=== PATIENT | male | born 1940 | race Caucasian/White ===

== ENCOUNTER → 2016-07-08 | Outpatient (CLI) | payer OTHER, BC ==
[~2016-07-08] VITALS: Ht 185.4 cm; Wt 108.6 kg
[~2016-07-08] MED LIST: ADIPEX-P37.5 MG PO; ADVAIR 500-501 EACH INH; CARBIDOPA-LEVO1 EAC9 PO; CIALIS5 MG PO; DIFLUCAN200 MG PO; FLOMAX0.4 MG PO; FLONASE 0.05%50 MCG NASAL; KLOR-CON 1010 MEQ PO; LASIX 40 MG TAB40 M2 PO; LIDODERM 5%1 PATC1 TRANSDERM; LUNESTA3 MG; MOVANTIK25 MG PO; NAPROSYN500 MG PO; OMEPRAZOLE 20 M20 M1 PO; OXYCODONE HCL 55 MG; OXYCODONE HCL5 M1 PO; OXYCODONE-ACET1 EACH PO; PHENTERMINE H37.5 M1 PO; PROAIR HFA8.5 GM; PROSCAR 5MG TABL5 MG PO; ROXICODONE5 M2 PO; SIMVASTATIN40 MG PO; SINGULAIR 10 MG10 M1 PO; TIZANIDINE HCL 22 M1 PO; VOLTAREN GEL 1100 G2 TOP; XANAX1 MG PO; ZYRTEC10 M4 PO; [UNRECOGNIZED DRUG - OTHER]; [UNRECOGNIZED DRUG - REMARK]
--- NOTE | ~2016-07-08 | HPC ---
[facility] [place] [address] PAIN MANAGEMENT CONSULTATION Name: ELADIAAAMIR CUMMINGS [facility] [id number] Admission: 07/08/16 Attend Phys: Bruce Khan DO Discharge: Date of : 42 Report #: [id number] THIS REPORT FOR: //name// CC: Robert Khan The patient is a 76-year-old gentleman initially treated for greater occipital neuralgia, myofascial pain, most recently treated for lumbar radiculopathy and SI joint dysfunction requiring complex medication management. Last seen in the pain clinic on 05/22/2016. Continued on oxycodone 5 mg t.i.d. We did a right SI joint injection and referred to physical therapy. He returns to pain clinic today noting that the injection afforded only 30% relief. He is yet to start doing physical therapy. He notes pain is primarily low back, right buttock and leg. Physical exam notes 76-year-old gentleman, BMI is 31.6 kilograms per meter squared. Rises from chair using armrest, acutely tender over the right SI. Lower extremity strength is symmetric. Straight leg raise is negative. Positive Flavia test on the right. ASSESSMENT: Ongoing right sacroiliac joint dysfunction, lumbar radiculopathy, greater occipital neuralgia, chronic pain syndrome requiring complex medication management. RECOMMENDATION: We will renew oxycodone 5 mg 1/2 to 1 b.i.d., 75 tablets for 30 days, naproxen sodium 500 mg b.i.d., 60 tablets with 1 refill. We will trial tizanidine for spasm 2 mg 1-2 tablets 3 times a day, 150 tablets with 2 refills. Amitiza 24 mcg b.i.d., 60 tablets with 2 refills had been faxed earlier in the week. This seems to be helpful for constipation. RECOMMENDATION: 1. Medication management as noted above. 2. Strongly encourage physical therapy. I wrote a new prescription for water aerobics. We will consider right SI joint injection at next visit. By: [id number] Bruce Khan DO /nt
[2016-07-08 14:04] VITALS: BP 124/70
== END ==
LOC: PAIN 06:54
DX: M54.81 Occipital neuralgia (principal); M54.16 Radiculopathy, lumbar region; M53.3 Sacrococcygeal disorders, not elsewhere classified; Z87.891 Personal history of nicotine dependence

== ENCOUNTER → 2016-07-19 | Outpatient (CLI) | payer OTHER, BC ==
[~2016-07-19] VITALS: Ht 185.4 cm; Wt 108.0 kg
--- NOTE | ~2016-07-19 | HPC ---
[facility] [place] [address] PAIN MANAGEMENT CONSULTATION Name: ELADIAEMILIANOAAMIR S Room #: [facility] [id number] Admission: 07/19/16 Attend Phys: Bruce Khan DO Discharge: Date of : 42 Report #: [id number] THIS REPORT FOR: //name// CC: Robert Khan The patient is a 76-year-old gentleman, prior seen in the pain clinic on 07/08/2016. We had elected to proceed with a right SI joint injection at this visit. I renewed prescription for water aerobics. He did see the physical therapist. He has had 1 visit, that they did get him exercises to do at home, for core strengthening. Presents to pain clinic today noting that right SI pain is 5/10. PROCEDURE NOTE: Right SI joint injection under fluoroscopy. DESCRIPTION OF PROCEDURE: After written informed consent was obtained, the patient was taken to fluoroscopy suite, placed in prone position. After sterile prep and drape, skin wheal was raised. A 22-gauge stylet needle was placed to contact the inferior aspect of the right SI joint. Negative aspiration was accomplished, 40 mg triamcinolone plus 2 mL of 0.5% preservative-free bupivacaine was injected into and around the joint. Needle was removed. The area was cleansed. Band-Aids applied. The patient monitored for an appropriate period of time, discharged in good and stable condition. <ELECTRONICALLY SIGNED> By: Bruce Khan DO 07/22/16 1538 [id number] Bruce Khan DO /nt
[2016-07-19 14:38] VITALS: BP 127/77
== END ==
LOC: PAIN 06:54
DX: M53.3 Sacrococcygeal disorders, not elsewhere classified (principal)

== ENCOUNTER → 2016-09-02 | Outpatient (CLI) | payer OTHER, BC ==
[~2016-09-02] VITALS: Ht 185.4 cm; Wt 111.6 kg
--- NOTE | ~2016-09-02 | HPC ---
[facility] [place] [address] PAIN MANAGEMENT CONSULTATION Name: AAMIR SHAW Room #: REG [facility].#: [id number] Admission: 09/02/16 Attend Phys: Bruce Khan DO Discharge: Date of : 42 Report #: [id number] THIS REPORT FOR: //name// CC: Robert Khan HISTORY OF PRESENT ILLNESS: The patient is a 76-year-old gentleman being treated for SI joint pain, greater occipital neuralgia, myofascial pain requiring complex medication management. Last seen in the pain clinic 07/19/2016, I did a right SI joint injection under fluoroscopy at that time with significant improvement of right SI pain. The patient returns to the pain clinic today for medication management. He has ongoing neck, posterior occiput and low back pain, remains about 5/10. Notes medications are helpful. He had a hiatus of about 30 days when he was out of town. He did not participate in his physical therapy. He would like to resume physical therapy. He has been taking oxycodone 5 mg 2 or 3 a day, limits 75 tablets for 30 days, Naprosyn 500 mg b.i.d., tizanidine 2 mg 1-2 tablets limit 150 tablets for 30 days on a more p.r.n. basis. PHYSICAL EXAMINATION: Shows a 76-year-old gentleman, BMI is 32.5 kilograms per meter squared. Subjective pain score is 5/10. Vital signs are stable as noted in the EMR with modest hypertension of 161/78, pulse 68, respirations of 14. Cervical range of motion is adequate. Tender in the right posterior occipital area, low back pain remains modestly problematic, again the right SI mediated pain is significantly improved at this time. Gait is tandem. We reviewed the fact that opiate medications are being used to provide analgesia adequate to support activities of daily living, not attempting to achieve a specific pain score on the 0-10 Visual Analog Scale. The current opiate medications are providing sufficient analgesia to allow the patient to participate in activities of daily living. The patient is not exhibiting any aberrant behavior suggestive of drug diversion. The patient is not having any adverse reactions to medications. The patient is not suffering from daytime somnolence or mental acuity changes. The patient is managing opiate-induced constipation with appropriate rexb-xzu-klvjtap agents and dietary considerations. The patient was counseled on concern for caution with operating a motor vehicle while using opiate medications. A physical exam was performed and the patient's functional status was evaluated. All patients with back pain were advised against the bed rest greater than 4 days and were advised to return to normal activities. Pain score assessment was noted and the treatment plan was reviewed with the patient. All current medications, both prescribed and OTC were reviewed and reconciled on the electronic medical record. Tobacco screening was accomplished and smoking cessation was advised when indicated. BMI was noted and diet/exercise modification was recommended for all patients following outside normal parameters. [address] [address] PAIN MANAGEMENT CONSULTATION Name: AAMIR SHAW Room #: REG [facility] Debra#: [id number] Admission: 09/02/16 Attend Phys: Bruce Khan DO Discharge: Date of : 42 Report #: [id number] I reviewed with the patient today their responsibilities to safeguard prescription medications, reviewed their responsibility to utilize medications only as prescribed by the physician. They are to seek and receive pain medications only from 1 physician group ( [facility]). They are to use 1 pharmacy and keep the clinic informed if they change pharmacies. Their responsibilities include making followup visits in a timely fashion and to avoid abrupt discontinuation of medication usage. Their responsibilities further include bringing their medications (bottles from the pharmacy with residual pills) to the visit for possible confirmation of pill counts and the patient understands it is their responsibility to submit to random drug screens to ensure both that the medications prescribed are present, and that no other controlled substances are present. All prescriptions provided today were generated electronically. ASSESSMENT: Sacroiliac mediated pain, greater occipital neuralgia, myofascial pain requiring complex medication management, stable on baseline medications. RECOMMENDATION: Renew oxycodone 5 mg, limit 75 tablets for 30 days. I have taken the liberty of writing for 2 months of current medication, Naprosyn 500 mg b.i.d., tizanidine 2 mg t.i.d., 150 tablets for 30 days. Follow up in 2 months for reevaluation, earlier if needed. <ELECTRONICALLY SIGNED> By: Bruce Khan DO 09/04/16 [id number] Bruce Khan DO /nt
[2016-09-02 14:32] VITALS: BP 161/78
== END ==
LOC: PAIN 06:15
DX: M54.81 Occipital neuralgia (principal)

== ENCOUNTER → 2016-10-10 | Outpatient (CLI) | payer OTHER, BC ==
[~2016-10-10] VITALS: Ht 185.4 cm; Wt 114.8 kg
[2016-10-10 11:15] VITALS: BP 105/76
== END | disposition home or self-care (01) ==
LOC: PAIN 06:48
DX: M53.3 Sacrococcygeal disorders, not elsewhere classified (principal); M47.897 Other spondylosis, lumbosacral region; M47.892 Other spondylosis, cervical region; M54.81 Occipital neuralgia; F11.20 Opioid dependence, uncomplicated; Z88.0 Allergy status to penicillin

== ENCOUNTER → 2016-11-11 | Outpatient (CLI) | payer OTHER, BC ==
[~2016-11-11] VITALS: Ht 185.4 cm; Wt 114.5 kg
--- NOTE | ~2016-11-11 | HPC ---
[facility] [place] [address] PAIN MANAGEMENT CONSULTATION Name: AAMIR SHAW [facility] [id number] Admission: 11/11/16 Attend Phys: Bruce Khan DO Discharge: Date of : 42 Report #: [id number] THIS REPORT FOR: //name// CC: Robert Khan The patient is a 76-year-old gentleman typically treated for greater occipital neuralgia, neuropathic pain, cervical spondylosis, ongoing SI mediated pain, lumbar spondylosis, requiring complex medication management. Last seen in pain clinic on 10/10/2016, continued on a low dose oxycodone 5 mg 1 tablet 2-3 times a day. K-TRACS was reviewed today. There are no aberrant findings, the patient fills his prescriptions in [place]. Presents to pain clinic today, pain seems to be getting worse in the mid low back area. We did a right SI joint injection at last visit with overall improvement of baseline pain. Notes his pain now; however, is somewhat higher. He specifically notes that after the SI joint injection, there were several days before pain relief occurred, but when it did, it was quite efficacious, notes 80% relief. His pain now is a little bit higher, in fact he had a friend circled the epicenter of his pain, which is around the L4-L5 area, much higher than the prior SI mediated pain. He notes this pain is a 7 on a VAS, exacerbated with sitting, standing. States the last few nights he has been unable to lie on his side due to this ongoing back pain. States he has a throbbing in his second toe on the left foot, this etiology is somewhat obscure. He states he saw a back surgeon at [facility]. Unfortunately, he does not have the consult results from this. They had suggested some surgical intervention (fusion?). We reviewed the fact that opiate medications are being used to provide analgesia adequate to support activities of daily living, not attempting to achieve a specific pain score on the 0-10 Visual Analog Scale. The current opiate medications are providing sufficient analgesia to allow the patient to participate in activities of daily living. The patient is not exhibiting any aberrant behavior suggestive of drug diversion. The patient is not having any adverse reactions to medications. The patient is not suffering from daytime somnolence or mental acuity changes. The patient is managing opiate-induced constipation with appropriate pjww-lxc-wiwkadz agents and dietary considerations. The patient was counseled on concern for caution with operating a motor vehicle while using opiate medications. A physical exam was performed and the patient's functional status was evaluated. All patients with back pain were advised against the bed rest greater than 4 days and were advised to return to normal activities. Pain score assessment was [address] [address] PAIN MANAGEMENT CONSULTATION Name: AAMIR SHAW Room #: REG [facility] Debra#: [id number] Admission: 11/11/16 Attend Phys: Bruce Khan DO Discharge: Date of : 42 Report #: [id number] noted and the treatment plan was reviewed with the patient. All current medications, both prescribed and OTC were reviewed and reconciled on the electronic medical record. Tobacco screening was accomplished and smoking cessation was advised when indicated. BMI was noted and diet/exercise modification was recommended for all patients following outside normal parameters. I reviewed with the patient today their responsibilities to safeguard prescription medications, reviewed their responsibility to utilize medications only as prescribed by the physician. They are to seek and receive pain medications only from 1 physician group ( [facility]). They are to use 1 pharmacy and keep the clinic informed if they change pharmacies. Their responsibilities include making followup visits in a timely fashion and to avoid abrupt discontinuation of medication usage. Their responsibilities further include bringing their medications (bottles from the pharmacy with residual pills) to the visit for possible confirmation of pill counts and the patient understands it is their responsibility to submit to random drug screens to ensure both that the medications prescribed are present, and that no other controlled substances are present. All prescriptions provided today were generated electronically. PHYSICAL EXAMINATION: Shows a 76-year-old gentleman, BMI is 33.3 kilograms per meter squared. Vital signs stable as noted in the EMR. Alert and oriented to person, place and time, judged to be a reasonable historian. Rises from chair using armrests. Again tender over the lower lumbar facets. SI joints really pretty unremarkable. Flexion and rotation do exacerbate low back pain. Lower extremity strength is symmetric. Straight leg raising negative. I reviewed diagnostic findings including MRI of the lumbar spine from earlier this year, 05/20/2016. L3-L4 notes mild facet hypertrophy; however, L4-L5 and L5-S1 have marked facet hypertrophy and I think that this is the etiology of his primary pain. Pain is little worse on the right than the left side. I suggest he move forward with right L4-L5 and L5-S1 facet joint injections under fluoroscopy. The patient would like to defer. We talked about opiate analgesics for pain, he is taking Naprosyn 500 mg p.r.n. I suggested for a short course to take it b.i.d. I will renew his oxycodone 5 mg, increasing from 75 to 90 tablets for 30 days. The patient was discharged in good and stable condition with 2 months of current medication. We will plan on moving forward with fluoroscopic-guided right L4-L5 and L5-S1 facet joint injections at the patient's discretion. Strongly encouraged core stabilization and weight loss. [facility] [address] [place] [address] PAIN MANAGEMENT CONSULTATION Name: AAMIR SHAW Room #: [facility]#: [id number] Admission: 11/11/16 Attend Phys: Bruce Khan DO Discharge: Date of : 42 Report #: [id number] Discharged in good and stable condition after a prolonged visit. The patient was seen for approximately 25 minutes from 9:55 to 10:20, discharged in good and stable condition. By: 1530 [id number] Bruce Khan DO /nt
[2016-11-11 09:44] VITALS: BP 129/71
== END ==
LOC: PAIN 07:10
DX: Z76.0 Encounter for issue of repeat prescription (principal); M54.81 Occipital neuralgia; M47.892 Other spondylosis, cervical region; M53.3 Sacrococcygeal disorders, not elsewhere classified; M47.896 Other spondylosis, lumbar region; Z79.891 Long term (current) use of opiate analgesic; Z98.890 Other specified postprocedural states; Z88.0 Allergy status to penicillin

== ENCOUNTER → 2017-01-03 | Outpatient (CLI) | payer OTHER, BC ==
[~2017-01-03] VITALS: Ht 185.4 cm; Wt 112.0 kg
--- NOTE | ~2017-01-03 | HPC ---
[facility] [address] [address] PAIN MANAGEMENT CONSULTATION Name: ELADIAEMILIANOAAMIR Ted [facility]: [facility] [id number] Admission: 01/03/17 Attend Phys: Bruce Khan DO Discharge: Date of : 42 Report #: [id number] THIS REPORT FOR: //name// CC: Robert Khan DATE OF SERVICE: 01/03/2017 DATE OF SERVICE: 01/03/2017 HISTORY OF PRESENT ILLNESS: The patient is a 76-year-old gentleman being treated for high risk complex medication management. He is in the opiate consent to treat contract. He has greater occipital neuralgia, neuropathic pain, cervical spondylosis, sacroiliac joint dysfunction along with some lumbar spondylosis. Last visit was 11/11/2016. We continued the patient on oxycodone 5 mg #75 tablets for 30 days. He prior had a surgical evaluation at [facility]. They suggested he may benefit from decompressive laminectomy fusion, but it was not urgent. He elected to postpone therapy. At the last visit, he was having some increased pain in the right low back. We talked about possible right L4-L5 and L5-S1 facet joint injections. We elected to continue conservative care. He returns to pain clinic today noting he is actually doing fairly well. To his credit, he is walking about 2 miles 4 times a week. He is using Movantik p.r.n. for constipation. He rates the pain at "3.5" on VAS. Pain is primarily right low back. Greater occipital neuralgia seems to be somewhat improved at this point. PHYSICAL EXAMINATION: Shows a 76-year-old gentleman, BMI is 32.6 kilograms per meter squared. Vital signs stable as noted in the EMR. Rises from chair using armrest. Endomorphic build. Modestly antalgic gait, diffuse tenderness across the low back. We reviewed the fact that opiate medications are being used to provide analgesia adequate to support activities of daily living, not attempting to achieve a specific pain score on the 0-10 Visual Analog Scale. The current opiate medications are providing sufficient analgesia to allow the patient to participate in activities of daily living. The patient is not exhibiting any aberrant behavior suggestive of drug diversion. The patient is not having any adverse reactions to medications. The patient is not suffering from daytime somnolence or mental acuity changes. The patient is managing opiate-induced constipation with appropriate lltl-lbw-xnanprz agents and dietary considerations. The patient was counseled on concern for caution with operating a motor vehicle while using opiate medications. [address] [address] PAIN MANAGEMENT CONSULTATION Name: AAMIR SHAW Room #: REG [facility] MassimoAnuradha#: [id number] Admission: 01/03/17 Attend Phys: Bruce Khan DO Discharge: Date of : 42 Report #: [id number] A physical exam was performed and the patient's functional status was evaluated. All patients with back pain were advised against the bed rest greater than 4 days and were advised to return to normal activities. Pain score assessment was noted and the treatment plan was reviewed with the patient. All current medications, both prescribed and OTC were reviewed and reconciled on the electronic medical record. Tobacco screening was accomplished and smoking cessation was advised when indicated. BMI was noted and diet/exercise modification was recommended for all patients following outside normal parameters. I reviewed with the patient today their responsibilities to safeguard prescription medications, reviewed their responsibility to utilize medications only as prescribed by the physician. They are to seek and receive pain medications only from 1 physician group ( [facility]). They are to use 1 pharmacy and keep the clinic informed if they change pharmacies. Their responsibilities include making followup visits in a timely fashion and to avoid abrupt discontinuation of medication usage. Their responsibilities further include bringing their medications (bottles from the pharmacy with residual pills) to the visit for possible confirmation of pill counts and the patient understands it is their responsibility to submit to random drug screens to ensure both that the medications prescribed are present, and that no other controlled substances are present. All prescriptions provided today were generated electronically. ASSESSMENT: Lumbar spondylosis, SI mediated pain, cervical spondylosis by history, greater occipital neuralgia, requiring high risk complex medication management, stable on baseline medications. RECOMMENDATION: 1. Continue oxycodone 5 mg 1 tablet 2-3 times a day, limit 75 tablets for 30 days. 2. I have taken the liberty of renewing physical therapy for core strengthening exercises. We talked today about weight reduction, dietary discretion and increasing exercise and activity. The patient was discharged in good and stable condition with 2 months of current medication. Follow up at that time, earlier if needed. By: [id number] Bruce Khan DO /nt
[2017-01-03 10:05] VITALS: BP 137/70
== END | disposition home or self-care (01) ==
LOC: PAIN 07:16
DX: M47.816 Spondylosis without myelopathy or radiculopathy, lumbar region (principal); M53.3 Sacrococcygeal disorders, not elsewhere classified; M47.812 Spondylosis without myelopathy or radiculopathy, cervical region; M54.81 Occipital neuralgia; Z68.32 Body mass index [BMI] 32.0-32.9, adult; Z87.891 Personal history of nicotine dependence

== ENCOUNTER → 2017-03-21 | Outpatient (CLI) | payer OTHER, BC ==
[~2017-03-21] VITALS: Ht 182.9 cm; Wt 115.1 kg
[~2017-03-21] MED LIST changes: +ELIQUIS5 MG PO
--- NOTE | ~2017-03-21 | HPC ---
[facility] [address] [address] PAIN MANAGEMENT CONSULTATION Name: AAMIR SHAW Room #: [facility] [id number] Admission: 03/21/17 Attend Phys: Bruce Khan DO Discharge: Date of : 44 Report #: [id number] THIS REPORT FOR: //name// CC: Robert Khan PAIN CLINIC NOTE HISTORY OF PRESENT ILLNESS: The patient is a 77-year-old gentleman typically treated for greater occipital neuralgia, neuropathic pain, chronic lumbar spondylosis, requiring high risk complex medication management. I last saw him in December. Referred him to physical therapy for some ongoing back pain. The patient was seen in my absent on 02/25/[address] Ryan Khan who refilled his oxycodone 5 mg, dispensed 75 tablets. He returns to the pain clinic today noting medications continue to provide sufficient analgesia to participate in activities of daily living, but he is having some increasing pain in the right low back. I have done occasional right SI joint injections, the last being September of this year with incremental improvement of baseline pain. The patient notes his pain is 2 on a VAS, but when he gets up, getting in and out of a car, pain becomes quite problematic in the right buttock and lower thigh. He notes the right greater occipital chronic neuralgia pain is improved. He is not having problems with daytime somnolence, mental acuity changes, constipation. He does take Eliquis for atrial fibrillation, though he notes that he had a cardioversion about 2 weeks ago and has been in sinus rhythm since. I have referred the patient to physical therapy for core strengthening exercises. He states that the exercise is actually fairly minimal. He does them sporadically. He is able to increase his ambulation since he has been in normal sinus rhythm. He notes that prior he would get quite short of breath when he was in atrial fibrillation. In normal sinus rhythm, he is able to walk, which is his exercise of choice. We reviewed the fact that opiate medications are being used to provide analgesia adequate to support activities of daily living, not attempting to achieve a specific pain score on the 0-10 Visual Analog Scale. The current opiate medications are providing sufficient analgesia to allow the patient to participate in activities of daily living. The patient is not exhibiting any aberrant behavior suggestive of drug diversion. The patient is not having any adverse reactions to medications. The patient is not suffering from daytime somnolence or mental acuity changes. The patient is managing opiate-induced constipation with appropriate vnop-ohw-llvycby agents and dietary [address] [address] PAIN MANAGEMENT CONSULTATION Name: AAMIR SHAW Room #: REG [facility]#: [id number] Admission: 03/21/17 Attend Phys: Bruce Khan DO Discharge: Date of : 44 Report #: [id number] considerations. The patient was counseled on concern for caution with operating a motor vehicle while using opiate medications. A physical exam was performed and the patient's functional status was evaluated. All patients with back pain were advised against the bed rest greater than 4 days and were advised to return to normal activities. Pain score assessment was noted and the treatment plan was reviewed with the patient. All current medications, both prescribed and OTC were reviewed and reconciled on the electronic medical record. Tobacco screening was accomplished and smoking cessation was advised when indicated. BMI was noted and diet/exercise modification was recommended for all patients following outside normal parameters. I reviewed with the patient today their responsibilities to safeguard prescription medications, reviewed their responsibility to utilize medications only as prescribed by the physician. They are to seek and receive pain medications only from 1 physician group ( [facility]). They are to use 1 pharmacy and keep the clinic informed if they change pharmacies. Their responsibilities include making followup visits in a timely fashion and to avoid abrupt discontinuation of medication usage. Their responsibilities further include bringing their medications (bottles from the pharmacy with residual pills) to the visit for possible confirmation of pill counts and the patient understands it is their responsibility to submit to random drug screens to ensure both that the medications prescribed are present, and that no other controlled substances are present. All prescriptions provided today were generated electronically. PHYSICAL EXAMINATION: Reveals a 77-year-old gentleman, BMI is modestly elevated at 34.4 kilograms per meter squared. He does have an endomorphic build. Blood pressure 159/78, pulse 74 and regular, respirations 16. Alert and oriented to person, place and time, judged to be a reasonable historian. Cervical range of motion is full. Still a little tender over the right SI and superior facet though this is nominal compared to prior presentation. Rises from chair using armrest. Tender over the right SI. Positive Flavia test on this side. Positive distraction and Gaenslen's test on this side as well. Lower extremity strength is symmetric. Straight leg raise is negative. ASSESSMENT: 1. Greater occipital neuralgia, neuropathic pain, lumbar spondylosis, requiring high risk complex medication management, stable on baseline medication. 2. Acute exacerbation of right sacroiliac mediated pain. RECOMMENDATIONS: 1. Renew oxycodone 5 mg 1 tablet 2-3 times a day, limit 75 tablets taken the liberty of writing for 2 months of current medication. 2. Right SI joint injection under fluoroscopy. PROCEDURE NOTE: After written informed consent was obtained, the patient was [address] [address] PAIN MANAGEMENT CONSULTATION Name: AAMIR SHAW Room #: [facility]#: [id number] Admission: 03/21/17 Attend Phys: Bruce Khan DO Discharge: Date of : 44 Report #: [id number] taken to the fluoroscopy suite and placed in prone position. After sterile prep and drape, skin wheal was raised. A 22-gauge stylet needle was placed to contact the inferior aspect of the right SI joint. Negative aspiration was accomplished. A 1 mL of Omnipaque was injected, which showed spread within the joint and a little outside of the joint as well. This was followed with 40 mg triamcinolone plus 2 mL of 0.5% preservative-free bupivacaine. [place] were removed. The area was cleansed and Band-Aids was applied. The patient was monitored for an appropriate period of time, discharged in good stable condition. Fluoroscopy time was under 10 seconds. By: [id number] Bruce Khan DO /nt
[2017-03-21 10:46] VITALS: BP 159/78
== END | disposition home or self-care (01) ==
LOC: PAIN 07:44
DX: M53.3 Sacrococcygeal disorders, not elsewhere classified (principal); M54.81 Occipital neuralgia; M47.896 Other spondylosis, lumbar region; G89.29 Other chronic pain; I48.91 Unspecified atrial fibrillation; Z88.0 Allergy status to penicillin; Z79.891 Long term (current) use of opiate analgesic; Z79.899 Other long term (current) drug therapy; Z87.891 Personal history of nicotine dependence